=== PATIENT | male | born 1970 | race Native Hawaiian/Other Pacific Islander ===

== ENCOUNTER 2016-08-12 00:44 | Emergency (ER) | payer BC ==
[~2016-08-12] VITALS: Ht 182.9 cm; Wt 106.6 kg
[2016-08-12 01:14] VITALS: BP 142/82; TEMP 98.2
== END 2016-08-12 01:10 | disposition home or self-care (01) ==
LOC: ED 00:44
DX: H57.13 Ocular pain, bilateral (principal); H16.133 Photokeratitis, bilateral; W89.8XXA Exposure to other man-made visible and ultraviolet light, initial encounter; Y92.098 Other place in other non-institutional residence as the place of occurrence of the external cause
CPT/HCPCS: 99282

== ENCOUNTER 2019-07-11 20:36 | Emergency (ER) | payer BC ==
[~2019-07-11] VITALS: Ht 182.9 cm; Wt 81.6 kg
[2019-07-11] MEDS ORDERED: PRINIVIL5 MG PO (21:05)
[2019-07-11] MEDS ORDERED: LIPITOR40 MG PO (21:06)
[2019-07-11 21:30] LABS: PLATELET COUNT 280 K/uL (142-355)
[2019-07-11 21:35] LABS: POTASSIUM 4.1 mmol/L (3.6-5.2)
[2019-07-11 22:16] VITALS: BP 128/69; TEMP 98.8
== END 2019-07-11 22:17 | disposition home or self-care (01) ==
LOC: ED 20:36
PROVIDERS: Hospitalist
DX: R10.31 Right lower quadrant pain (principal)
CPT/HCPCS: 80053; 81000; 82150; 83690; 85027; 96374; 96375; 99284; J1170; J1885; J2405